=== PATIENT | male | born 1960 | race American Indian/Alaskan Native ===

== ENCOUNTER 2018-05-04 11:42 | Inpatient (IN) | payer BC ==
[2017-06-16 11:39] VITALS: BMI 33.9
[2018-05-04 14:56] LABS: INR 1.1; PROTHROMBIN TIME 12.4 SECONDS (9.7-12.2)
[2018-05-04 14:59] LABS: ALB/GLOB RATIO 1.2 (1.0-2.1); ALBUMIN 4.2 g/dL (3.5-5.0); BASO % 0.5 % (0.0-2.0); EOS # 0.1 K/uL (0.0-0.7); EOS % 1.5 % (0.0-4.0); HEMOGLOBIN 14.5 g/dL (12.0-18.0); LYMPH % 10.9 % (20.0-40.0); MEAN CELL VOLUME 88.7 fL (80.0-94.0); MEAN CORPUSCULAR HEMOGLOBIN 30.3 pg (27.0-31.0); MEAN CORPUSCULAR HGB CONC 34.1 g/dL (33.0-37.0); MEAN PLATELET VOLUME 9.8 fL (7.2-11.7); MONO # 0.9 K/uL (0.0-0.8); MONO % 9.9 % (0.0-10.0); NEUT # 7.3 K/uL (1.8-7.0); NEUT % 77.2 % (50.0-75.0); RBC 4.8 Mil/uL (4.40-5.90); RED CELL DISTRIBUTION WIDTH 15.2 % (11.5-14.5); WHITE BLOOD COUNT 9.4 K/uL (4.8-10.8)
[2018-05-04] MEDS ORDERED: Potassium Chloride 20 mEq ER Tab PO STA (15:11)
[2018-05-04] MEDS ORDERED: Sodium Chloride 0.9% 1,000 ML IV STA (15:42)
[2018-05-04 15:49] LABS: HEPATITIS B SURFACE AG Negative (NEGATIVE)
[2018-05-04 15:55] LABS: HEPATITIS A IGM NEGATIVE (NEGATIVE); HEPATITIS B CORE AB NEGATIVE (NEGATIVE)
[2018-05-04 16:06] LABS: HEPATITIS C ANTIBODY NEGATIVE (NEGATIVE)
--- NOTE | 2018-05-04 16:33 | US ---
HISTORY: Abdominal pain, abnormal LFTs and Bili, hypotension COMPARISON: None available. TECHNIQUE: Sonographic evaluation of the abdomen. FINDINGS: LIVER: Measures 21.9 cm in sagittal dimension. Echogenic liver may be seen in setting of hepatic parenchymal disease or fatty infiltration. Suspected focal fatty sparing. The main portal vein appears patent with normal directional flow. No intrahepatic bile duct dilatation. GALLBLADDER: Limited evaluation due to contracted state. No gallstones or gallbladder wall thickening appreciated. Negative sonographic Gomez's sign as assessed by the ent nurse. COMMON BILE DUCT: Measures 5 mm. PANCREAS: Not well visualized. RIGHT KIDNEY: Measures 11.2 x 4.5 x 6.0 cm. No obstructing calculus or hydronephrosis identified. LEFT KIDNEY: Measures 10.5 x 5.3 x 4.7 cm. No obstructing calculus or hydronephrosis identified. SPLEEN: Measures approximately 11.2 cm. AORTA: Limited views appear unremarkable. IVC: Limited views appear unremarkable. OTHER FINDINGS: None. IMPRESSION: Hepatomegaly. Echogenic liver may be seen in setting of hepatic parenchymal disease or fatty infiltration. Suspected focal fatty sparing. Suggest further evaluation with cross-sectional imaging if indicated. Contracted gallbladder state precludes adequate evaluation.
[2018-05-04] MEDS ORDERED: Sodium Chloride 0.9% 1,000 ML ONE (16:40)
[2018-05-04] MEDS ORDERED: Potassium Chloride 20 mEq ER Tab PO ONE (16:40)
[2018-05-04 17:50] LABS: BILIRUBIN,DIRECT 6.5 mg/dL (0.0-0.4)
--- NOTE | 2018-05-04 18:02 | C.PDOC ---
History Of Present Illness see downtime paper chart Time Seen by Provider: 05/04/18 15:30 Chief Complaint (Nursing): Abdominal Pain Past Medical History Vital Signs: Last Vital Signs Temp Pulse 62 05/04/18 17:41 Resp 16 05/04/18 17:41 BP 100/61 05/04/18 17:41 Pulse Ox 98 05/04/18 17:41 - Medical History PMH: HTN Denies: Chronic Kidney Disease Family History: States: No Known Family Hx ED Course And Treatment - Laboratory Results Result Diagrams: 05/06/18 06:40 05/06/18 06:40 O2 Sat by Pulse Oximetry: 98 Disposition - Disposition Disposition: HOSPITALIZED Disposition Time: 18:03 Condition: FAIR - Clinical Impression Clinical Impression: Abdominal bloating, Acute kidney injury, Obstructive jaundice
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
[2018-05-04 19:36] LABS: SQUAMOUS EPITHIAL 2 /hpf (0-5); URINE BACTERIA RARE (<OCC); URINE BILIRUBIN 2+ (NEGATIVE); URINE BLOOD 1+ (NEGATIVE); URINE CLARITY Hazy (Clear); URINE COLOR Amber (YELLOW); URINE GLUCOSE (UA) NORMAL (Normal); URINE LEUKOCYTE ESTERASE NEG Leu/uL (Negative); URINE PROTEIN 2+ mg/dL (NEGATIVE)
[2018-05-04] MEDS ORDERED: Glucagon Recombinant 1 mg Inj IM PRN (19:55)
[2018-05-04] MEDS ORDERED: Dextrose 50% SYRINGE Inj (50 ml) IV PRN (19:55)
[2018-05-04] MEDS ORDERED: Sodium Chloride 0.9% 1,000 ML IV SCH (20:00)
[2018-05-04 20:01] LABS: BARBITURATES, UR NEGATIVE (NEGATIVE); BENZODIAZEPINES, UR NEGATIVE (NEGATIVE); PHENCYCLIDINE, UR NEGATIVE (NEGATIVE)
[2018-05-04 20:06] LABS: OPIATES, UR POSITIVE (NEGATIVE)
[2018-05-04] MEDS ORDERED: Iohexol 240 (50 ml) ONE (20:11)
[2018-05-04 20:16] LABS: CREATININE, RANDOM URINE 326.3 mg/dL
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
[2018-05-05 07:20] LABS: BASO # 0.1 K/uL (0.0-0.2); BASO % 0.8 % (0.0-2.0); EOS # 0.3 K/uL (0.0-0.7); EOS % 3.8 % (0.0-4.0); HEMOGLOBIN 13.5 g/dL (12.0-18.0); LYMPH # 1.3 K/uL (1.0-4.3); LYMPH % 15.5 % (20.0-40.0); MEAN CELL VOLUME 88.4 fL (80.0-94.0); MEAN CORPUSCULAR HEMOGLOBIN 30.6 pg (27.0-31.0); MEAN CORPUSCULAR HGB CONC 34.6 g/dL (33.0-37.0); MEAN PLATELET VOLUME 9.4 fL (7.2-11.7); MONO # 0.9 K/uL (0.0-0.8); MONO % 10.7 % (0.0-10.0); NEUT # 5.6 K/uL (1.8-7.0); NEUT % 69.2 % (50.0-75.0); NRBC % 0.2 % (0.0-2.0); RBC 4.43 Mil/uL (4.40-5.90); RED CELL DISTRIBUTION WIDTH 14.8 % (11.5-14.5); WHITE BLOOD COUNT 8.1 K/uL (4.8-10.8)
--- NOTE | 2018-05-05 07:30 | CP.PCM.PN ---
<Elio Ugalde - Last Filed: 05/05/18 16:30> Subjective - Date & Time of Evaluation Date of Evaluation: 05/05/18 Time of Evaluation: 07:29 - Subjective Subjective: PGY-1 Medicine Progress Note for Dr. Mckeon Patient seen and examined. No acute overnight events reported. Patient endorses improved epigastric abdominal pain, pruritus. No new episodes of nausea/vomiting/diarrhea. Denies any fevers/chills, headaches, chest pain, palpitations, sob. Objective - Vital Signs/Intake and Output Vital Signs (last 24 hours): Temp Pulse Resp BP Pulse Ox 98.3 F 91 H 20 117/77 98 05/05/18 04:22 05/05/18 07:08 05/05/18 04:22 05/05/18 04:22 05/05/18 04:22 - Medications Medications: Current Medications Dextrose (Dextrose 50% Inj) 0 ml IV STAT PRN; Protocol PRN Reason: Hypoglycemia Protocol Dextrose (Glutose 15) 0 gm PO ONCE PRN; Protocol PRN Reason: Hypoglycemia Protocol Diphenhydramine HCl (Benadryl) 25 mg PO Q6 PRN PRN Reason: Itching / Pruritus Glucagon (Glucagen Diagnostic Kit) 0 mg IM STAT PRN; Protocol PRN Reason: Hypoglycemia Protocol Sodium Chloride (Sodium Chloride 0.9%) 1,000 mls @ 150 mls/hr IV .Q6H40M CHARLY Dextrose (Dextrose 5% In Water 1000 Ml) 1,000 mls @ 0 mls/hr IV .Q0M PRN; Protocol PRN Reason: Hypoglycemia Protocol Insulin Human Regular (Novolin R) 0 unit SC ACHS CHARLY; Protocol Pantoprazole Sodium (Protonix Inj) 40 mg IVP DAILY CHARLY - Labs Labs: 05/05/18 06:58 05/04/18 12:45 PT 12.4 SECONDS (9.7-12.2) H 05/04/18 12:45 INR 1.1 05/04/18 12:45 APTT 37 SECONDS (21-34) H 05/04/18 12:45 - Constitutional Appears: Non-toxic, No Acute Distress - Head Exam Head Exam: ATRAUMATIC, NORMAL INSPECTION, NORMOCEPHALIC - Eye Exam Eye Exam: EOMI, Normal appearance Pupil Exam: NORMAL ACCOMODATION - ENT Exam ENT Exam: Mucous Membranes Moist, Normal Exam - Neck Exam Neck Exam: Full ROM, Normal Inspection - Respiratory Exam Respiratory Exam: Clear to Ausculation Bilateral, NORMAL BREATHING PATTERN. absent: Accessory Muscle Use, Rales, Rhonchi, Wheezes, Respiratory Distress, Stridor - Cardiovascular Exam Cardiovascular Exam: REGULAR RHYTHM, +S1, +S2 - GI/Abdominal Exam GI & Abdominal Exam: Soft, Tenderness (mild), Normal Bowel Sounds. absent: Distended, Firm, Guarding, Rigid, Organomegaly, Rebound - Extremities Exam Extremities Exam: Full ROM, Normal Capillary Refill, Normal Inspection - Back Exam Back Exam: NORMAL INSPECTION - Neurological Exam Neurological Exam: Alert, Awake, Oriented x3 - Psychiatric Exam Psychiatric exam: Normal Affect, Normal Mood - Skin Skin Exam: Dry, Intact, Normal Color, Warm Assessment and Plan - Assessment and Plan (Free Text) Assessment: 58 year old obese male with PMHx of HTN, DM, chronic back pain presenting to ED from PMD's office for hypotension, jaundice, pruritis, epigastric abdominal pain. Plan: New onset jaundice, r/o obstructive jaundice vs medication-induced -AST/ALT 100/306-->86/239 -ALP 230-->212 -Direct bilirubin 6.5 -GGT 1027 -amylase/lipase wnl -serum ammonia wnl -hepatitis panel negative -Abdominal u/s: CBD 5mm, hepatomegaly. Echogenic liver may be seen in setting of hepatic parenchymal disease or fatty infiltration. Suspected focal fatty sparing. Contracted gallbladder state precludes adequate evaluation - GI recs (Dr. Yen) appreciated: -EGD done this AM with no significant findings -Continue to monitor LFTs, suspect drug induced liver injury given clinical scenario -Obtain autoimmune panel and iron studies -Will continue to monitor patient clinical course -Case discussed with Surgery (Dr. Ceron) -EGD done this AM with no significant findings -Monitor LFTs -no plan for surgical intervention at this time Acute Renal Failure -BUN/Cr: 28/2.8 on admission -UCx prelim: GNR -Nephrology (Dr. [place]) recs appreciated -continue IVF w/ NS at 150 cc/hr -replenish potassium prn (mild hypokalemia) -awaiting results of CT abd/pelvis -avoid nephrotoxic agents (NSAIDS, etc) -hold ARB Hypokalemia -replenished, continue to monitor HTN -resumed home meds -ASA 81 mg PO daily -Norvasc 5 mg PO daily -Coreg 12.5 mg PO BID DM -A1C: 6.9 -home metformin held -ISS -accuchecks ACHS -hypoglycemic protocol PPx, Diet, Disposition -DVT ppx: scds, heparin 5000 units sc q8 -GI ppx: protonix 40 daily -Diet: diabetic consistent Case discussed with Dr. Mike Ugalde DO, PGY-1 <Tha Mckeon - Last Filed: 05/07/18 20:03> Objective - Vital Signs/Intake and Output Vital Signs (last 24 hours): Temp Pulse Resp BP Pulse Ox 97.8 F 77 20 142/93 H 98 05/07/18 07:00 05/07/18 16:00 05/07/18 07:00 05/07/18 09:01 05/07/18 07:00 - Labs Labs: 05/07/18 07:20 05/07/18 07:11 PT 12.2 SECONDS (9.7-12.2) 05/06/18 11:53 INR 1.1 05/06/18 11:53 APTT 37 SECONDS (21-34) H 05/04/18 12:45 Attending/Attestation - Attestation I have personally seen and examined this patient.: Yes I have fully participated in the care of the patient.: Yes I have reviewed all pertinent clinical information, including history, physical exam and plan: Yes Notes (Text): seen and examined no complain,pruritus better s/p EGD continue to monitor his LFT hold ACEI and metformin continue norvasc and coreg discussed with the resident,spoke to Dr Yen
[2018-05-05 07:39] LABS: ALB/GLOB RATIO 1.1 (1.0-2.1); ALBUMIN 3.7 g/dL (3.5-5.0); CALCIUM 8.6 mg/dl (8.6-10.4)
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
[2018-05-05] MEDS ORDERED: Potassium Chloride 20 mEq ER Tab PO ONE ×2 (07:52→21:51)
[2018-05-05] MEDS: (Novolin R) Insulin Human Regular 100 units/ml vial SC SCH ×3 (08:18→22:58)
[2018-05-05] MEDS: Sodium Chloride 0.9% 1,000 ML IV SCH ×3 (08:31→22:19)
--- NOTE | 2018-05-05 08:45 | CP.PCM.PN ---
Subjective - Date & Time of Evaluation Date of Evaluation: 05/05/18 Time of Evaluation: 11:06 - Subjective Subjective: Surgery: Dr. Ceron Pt seen and examined. No acute overnight events. Pt states he is feeling better compared to yesterday and epigastric pain is less severe. He denies any episodes of nausea/vomiting. Denies fevers/chills. Objective - Vital Signs/Intake and Output Vital Signs (last 24 hours): Temp Pulse Resp BP Pulse Ox 98.3 F 91 H 20 154/91 H 95 05/05/18 07:00 05/05/18 07:08 05/05/18 07:00 05/05/18 07:00 05/05/18 07:00 - Medications Medications: Current Medications Dextrose (Dextrose 50% Inj) 0 ml IV STAT PRN; Protocol PRN Reason: Hypoglycemia Protocol Dextrose (Glutose 15) 0 gm PO ONCE PRN; Protocol PRN Reason: Hypoglycemia Protocol Diphenhydramine HCl (Benadryl) 25 mg PO Q6 PRN PRN Reason: Itching / Pruritus Glucagon (Glucagen Diagnostic Kit) 0 mg IM STAT PRN; Protocol PRN Reason: Hypoglycemia Protocol Dextrose (Dextrose 5% In Water 1000 Ml) 1,000 mls @ 0 mls/hr IV .Q0M PRN; Protocol PRN Reason: Hypoglycemia Protocol Potassium Chloride (Potassium Chloride 10 Meq/100 Ml) 10 meq in 100 mls @ 100 mls/hr IVPB ONCE ONE Stop: 05/05/18 08:59 Last Admin: 05/05/18 08:11 Dose: 100 mls/hr Sodium Chloride (Sodium Chloride 0.9%) 1,000 mls @ 100 mls/hr IV .Q10H [facility] Last Admin: 05/05/18 08:31 Dose: Not Given Insulin Human Regular (Novolin R) 0 unit SC ACHS [facility]; Protocol Last Admin: 05/05/18 08:18 Dose: Not Given Pantoprazole Sodium (Protonix Inj) 40 mg IVP DAILY [facility] - Labs Labs: 05/05/18 06:58 05/05/18 06:58 PT 12.4 SECONDS (9.7-12.2) H 05/04/18 12:45 INR 1.1 05/04/18 12:45 APTT 37 SECONDS (21-34) H 05/04/18 12:45 - Constitutional Appears: Well, No Acute Distress - Head Exam Head Exam: ATRAUMATIC, NORMOCEPHALIC - Eye Exam Eye Exam: Scleral icterus - ENT Exam ENT Exam: Mucous Membranes Moist - Respiratory Exam Respiratory Exam: NORMAL BREATHING PATTERN - Cardiovascular Exam Cardiovascular Exam: RRR - GI/Abdominal Exam GI & Abdominal Exam: Soft. absent: Guarding, Tenderness, Rebound - Neurological Exam Neurological Exam: Alert, Awake, Oriented x3 - Skin Skin Exam: Dry, Warm Assessment and Plan - Assessment and Plan (Free Text) Assessment: 58M with obstructive jaundice Plan: - f/u GI plan - EGD done this AM with no significant findings - Monitor LFTs - no plan for surgical intervention at this time - d/w Dr. Jie Bustillo
--- NOTE | 2018-05-05 09:18 | RAD ---
Date of service: 05/05/2018 HISTORY: r/o lung pathology COMPARISON: None available. FINDINGS: LUNGS: No acute infiltrates bilaterally. Faint nodular density at the mid left lung zone laterally which confirmed on a prior CT of the abdomen pelvis in the lung base sections image 1 series 5 performed 05/04/2018. This is not calcified nodule and therefore granuloma is not improved. Follow-up low-dose chest CT without contrast is advised to demonstrate stability of this finding in 6-12 months depending on patient's risk factors for developing lung cancer. PLEURA: No significant pleural effusion identified, no pneumothorax apparent. CARDIOVASCULAR: No aortic atherosclerotic calcification present. Normal cardiac size. Borderline pulmonary venous congestion. OSSEOUS STRUCTURES: No significant abnormalities. VISUALIZED UPPER ABDOMEN: Normal. OTHER FINDINGS: None. IMPRESSION: No acute cardiopulmonary disease appreciable. A sub cm nodule seen the mid left lung zone laterally, apparently in left upper lobe as demonstrated prior chest base sections from abdomen and pelvis CT 05/04/2018 for follow-up chest CT advised under low-dose technique without contrast in 6-12 months depending on patient risk factors for developing lung cancer.
[2018-05-05] MEDS ORDERED: Potassium Chloride 20 mEq ER Tab PO SCH (10:00)
[2018-05-05] MEDS ORDERED: Propofol 10 mg/ml Inj (20 ML) ONE ×2 (10:34→10:41)
--- NOTE | 2018-05-05 13:08 | CT ---
PROCEDURE: CT Abdomen and Pelvis without IV contrast. HISTORY: High LFT and acute renal failure COMPARISON: Abdominal ultrasound performed 05/04/18 TECHNIQUE: Contiguous axial images of the abdomen and pelvis. Oral contrast was administered. No IV contrast given. Coronal and Sagittal reformats generated and reviewed. Radiation dose: Total exam DLP = 1204.69 mGy-cm. This CT exam was performed using one or more of the following dose reduction techniques: Automated exposure control, adjustment of the mA and/or kV according to patient size, and/or use of iterative reconstruction technique. FINDINGS: There is limited evaluation of the solid organs without the administration of IV contrast. LOWER THORAX: 4 mm nodule, lingula (series 5, image 1). 7 mm nodule with calcified calcification in the right middle lobe (image 3). 2 mm subpleural left lower lobe nodule. Calcified granuloma at the right lung base measures approximately 2 mm. No visible consolidation, pleural effusion, or pneumothorax. Partially imaged borderline cardiomegaly. LIVER: Unremarkable unenhanced appearance. GALLBLADDER AND BILE DUCTS: Unremarkable unenhanced appearance. PANCREAS: Question possibility of mild pancreatic edema at the level of the uncinate/head. SPLEEN: Unremarkable unenhanced appearance. ADRENALS: Unremarkable unenhanced appearance. KIDNEYS AND URETERS: No hydronephrosis or obstructing renal calculus. BLADDER: The urinary bladder appears unremarkable. REPRODUCTIVE: Unremarkable. APPENDIX: The appendix appears within normal limits of caliber. No secondary signs of acute appendicitis. BOWEL: The stomach is nondistended. Possible mild gastric wall thickening may be seen in the setting of gastritis. The bowel loops appear within normal limits of caliber without evidence of intestinal obstruction. Duodenal diverticulum. Marked small bowel wall thickening of the duodenum and jejunum may be seen in the setting of enteritis. Diverticulosis without CT evidence of acute diverticulitis. PERITONEUM: No significant free fluid. No definite free air. LYMPH NODES: Prominent sub cm mesenteric lymph nodes, nonspecific. Mild associated mesenteric edema/inflammatory stranding. VASCULATURE: No aortic aneurysm. BONES: No acute osseous abnormality is detected. OTHER FINDINGS: None. IMPRESSION: Evidence of calcified granulomas at the right lung base as well as noncalcified pulmonary nodules measuring up to 4 mm in the lingula. Suggest follow-up CT at 12 months. Duodenal diverticulum. Marked wall thickening of the duodenum and proximal jejunum; correlate for enteritis. Gastric wall appears mildly thickened and gastritis is not excluded. Sub cm mesenteric lymph nodes and associated mesenteric inflammatory stranding/edema; mesenteric adenitis/panniculitis not excluded. Suspect mild edema involving the pancreatic uncinate/head possibly the result of adjacent inflammatory changes. Pancreatitis cannot be excluded. Recommend correlation with amylase and lipase. Additional incidental findings as above. Preliminary impression was provided by [employer]. Study marked for PA review.
[2018-05-05 14:34] LABS: IRON 75 ug/dL (49-181)
[2018-05-05 14:43] LABS: % IRON SATURATION 18 (20-55); TOTAL IRON BINDING CAPACITY 415 ug/dL (250-450)
[2018-05-05] MEDS ORDERED: oxyCODONE 5 mg Immediate Release Tab PO ONE (18:02)
[2018-05-05] MEDS ORDERED: Simethicone 80 mg Chewtab PO PRN (19:37)
[2018-05-05] MEDS: Potassium Chloride 20 mEq ER Tab PO SCH ×2 (19:54→21:51)
--- NOTE | 2018-05-05 22:48 | CP.PCM.PN ---
Subjective - Date & Time of Evaluation Date of Evaluation: 05/05/18 Time of Evaluation: 20:00 - Subjective Subjective: Patient reporting severe abd pain a little while ago, attributes it to gas, resolved; still with some epigastric soreness; tolerating diet well; urinating frequently; Objective - Vital Signs/Intake and Output Vital Signs (last 24 hours): Temp Pulse Resp BP Pulse Ox 98.2 F 77 20 157/89 H 95 05/05/18 15:00 05/05/18 15:00 05/05/18 15:00 05/05/18 17:36 05/05/18 15:00 Intake and Output: 05/05/18 05/06/18 18:59 06:59 Intake Total 800 800 Balance 800 800 - Medications Medications: Current Medications Amlodipine Besylate (Norvasc) 5 mg PO DAILY [facility] Aspirin (Aspirin Chewable) 81 mg PO DAILY [facility] Carvedilol (Coreg) 12.5 mg PO BID [facility] Last Admin: 05/05/18 17:36 Dose: 12.5 mg Dextrose (Dextrose 50% Inj) 0 ml IV STAT PRN; Protocol PRN Reason: Hypoglycemia Protocol Dextrose (Glutose 15) 0 gm PO ONCE PRN; Protocol PRN Reason: Hypoglycemia Protocol Diphenhydramine HCl (Benadryl) 25 mg PO Q6 PRN PRN Reason: Itching / Pruritus Glucagon (Glucagen Diagnostic Kit) 0 mg IM STAT PRN; Protocol PRN Reason: Hypoglycemia Protocol Dextrose (Dextrose 5% In Water 1000 Ml) 1,000 mls @ 0 mls/hr IV .Q0M PRN; Protocol PRN Reason: Hypoglycemia Protocol Potassium Chloride 40 meq/ (Sodium Chloride) 1,020 mls @ 100 mls/hr IV .[id number] [facility] Stop: 05/06/18 08:58 Insulin Human Regular (Novolin R) 0 unit SC ACHS [facility]; Protocol Last Admin: 05/05/18 17:36 Dose: 2 unit Pantoprazole Sodium (Protonix Inj) 40 mg IVP DAILY [facility] Last Admin: 05/05/18 10:16 Dose: Not Given Pneumococcal Polyvalent Vaccine (Pneumovax 23 Vaccine) 0.5 ml IM .ONCE ONE Stop: 05/07/18 10:01 Simethicone (Mylicon Chew Tab) 80 mg PO Q6H PRN PRN Reason: GI distress Last Admin: 05/05/18 19:53 Dose: 80 mg - Labs Labs: 05/05/18 06:58 05/05/18 17:29 PT 12.4 SECONDS (9.7-12.2) H 05/04/18 12:45 INR 1.1 05/04/18 12:45 APTT 37 SECONDS (21-34) H 05/04/18 12:45 - Constitutional Appears: Non-toxic, No Acute Distress - Eye Exam Eye Exam: Normal appearance - ENT Exam ENT Exam: Mucous Membranes Moist - Respiratory Exam Respiratory Exam: Clear to Ausculation Bilateral. absent: Respiratory Distress - Cardiovascular Exam Cardiovascular Exam: RRR, +S1, +S2 - GI/Abdominal Exam GI & Abdominal Exam: Soft, Tenderness - Extremities Exam Additional comments: no leg edema; - Neurological Exam Neurological Exam: Alert, Awake - Psychiatric Exam Psychiatric exam: Normal Mood. absent: Agitated - Skin Skin Exam: Warm. absent: Cyanosis Assessment and Plan (1) Acute kidney injury Assessment & Plan: Pre-renal etiology, resolving with IVF, continue same; holding ARB for today, should be able to restart by tomorrow; continue to replenish K prn (adding 40 meq/L to IVF); avoid nephrotoxic agents; Status: Acute (2) HTN (hypertension) Assessment & Plan: BP elevated, agree with restarting amlodipine and coreg; holding ARB as above; Status: Chronic (3) Back pain Status: Chronic (4) Obstructive jaundice Status: Acute
--- NOTE | 2018-05-05 23:14 | CARD ---
APPROVED REPORT Date of service: 05/05/2018 EXAM: Two-dimensional and M-mode echocardiogram with Doppler and color Doppler. Other Information Quality : LimitedRhythm : NSR INDICATION PULMONARY EDEMA 2D DIMENSIONS IVSd0.8 (0.7-1.1cm)LVDd5.3 (3.9-5.9cm) PWd0.8 (0.7-1.1cm)LA [id number] (18-58mL) LVDs3.7 (2.5-4.0cm)FS (%) 29.7 % LVEF (%)56.3 (>50%) M-Mode DIMENSIONS Left Atrium (MM)3.71 (2.5-4.0cm)IVSd1.10 (0.7-1.1cm) Aortic Root3.97 (2.2-3.7cm)LVDd5.35 (4.0-5.6cm) Aortic Cusp Exc.2.02 (1.5-2.0cm)PWd1.20 (0.7-1.1cm) FS (%) 29 %LVDs3.79 (2.0-3.8cm) LVEF (%)56 (>50%) Mitral Valve MV E Ksmqnmfv91.2cm/sMV A Ghabplte01.9cm/sE/A ratio1.3 TDI Lateral E' Peak V7.13cm/sMedial E' Peak V8.74cm/sE/Lateral E'12.8 E/Medial E'10.4 LEFT VENTRICLE The left ventricle is normal size. There is borderline concentric left ventricular hypertrophy. Left ventricle systolic function is normal. The Ejection Fraction is 55-60%. There is normal LV segmental wall motion. Transmitral Doppler flow pattern is Grade I-abnormal relaxation pattern. There is no ventricular septal defect visualized. RIGHT VENTRICLE The right ventricle is normal size. The right ventricular systolic function is normal. ATRIA The left atrium is mildly dilated. The right atrium size is normal. AORTIC VALVE The aortic valve is mildly sclerotic. The aortic valve is tri-cuspid. There is trace aortic regurgitation. There is no aortic valvular stenosis. MITRAL VALVE The mitral valve is normal in structure. There is no evidence of mitral valve prolapse. There is no mitral valve regurgitation noted. TRICUSPID VALVE The tricuspid valve is normal in structure. There is no tricuspid valve regurgitation noted. PULMONIC VALVE The pulmonary valve is normal in structure. There is no pulmonic valvular regurgitation. GREAT VESSELS The aortic root is mildly enlarged. 3.8 cm The ascending aorta is normal in size. The IVC was not visualized. PERICARDIAL EFFUSION There is no pericardial effusion. <Conclusion> There is borderline concentric left ventricular hypertrophy. Left ventricle systolic function is normal. The Ejection Fraction is 55-60%. Transmitral Doppler flow pattern is Grade I-abnormal relaxation pattern. The aortic root is mildly enlarged. 3.8 cm
[2018-05-06 06:47] LABS: BASO % 0.6 % (0.0-2.0); EOS # 0.2 K/uL (0.0-0.7); EOS % 3.2 % (0.0-4.0); HEMOGLOBIN 13.7 g/dL (12.0-18.0); LYMPH # 1.1 K/uL (1.0-4.3); LYMPH % 15.1 % (20.0-40.0); MEAN CELL VOLUME 87.7 fL (80.0-94.0); MEAN CORPUSCULAR HEMOGLOBIN 31.1 pg (27.0-31.0); MEAN CORPUSCULAR HGB CONC 35.4 g/dL (33.0-37.0); MEAN PLATELET VOLUME 8.9 fL (7.2-11.7); MONO # 0.8 K/uL (0.0-0.8); MONO % 11.4 % (0.0-10.0); NEUT # 5.2 K/uL (1.8-7.0); NEUT % 69.7 % (50.0-75.0); RBC 4.43 Mil/uL (4.40-5.90); RED CELL DISTRIBUTION WIDTH 14.6 % (11.5-14.5); WHITE BLOOD COUNT 7.4 K/uL (4.8-10.8)
[2018-05-06 07:01] LABS: ALB/GLOB RATIO 1.1 (1.0-2.1); ALT/SGPT 239 U/L (21-72); AST/SGOT 137 U/L (17-59); BLOOD UREA NITROGEN 12 mg/dL (9-20); GFR NON-AFRICAN AMERICAN > 60
--- NOTE | 2018-05-06 07:33 | CP.PCM.PN ---
<Elio Ugalde - Last Filed: 05/06/18 13:14> Subjective - Date & Time of Evaluation Date of Evaluation: 05/06/18 Time of Evaluation: 07:33 - Subjective Subjective: PGY-1 Medicine Progress Note for Dr. Mckeon Patient seen and examined at bedside this AM. No acute overnight events. Patient states epigastric abdominal pain is mildly improved, endorses 3 BM overnight. Patient had EGD performed yesterday, with no acute findings. Scheduled for MRCP later this afternoon. No other acute somatic complaints at this time. Objective - Vital Signs/Intake and Output Vital Signs (last 24 hours): Temp Pulse Resp BP Pulse Ox 98.2 F 85 20 145/89 95 05/05/18 23:50 05/05/18 23:50 05/05/18 23:50 05/05/18 23:50 05/05/18 23:50 Intake and Output: 05/06/18 05/06/18 06:59 18:59 Intake Total 1650 Balance 1650 - Medications Medications: Current Medications Amlodipine Besylate (Norvasc) 5 mg PO DAILY [facility] Aspirin (Aspirin Chewable) 81 mg PO DAILY [facility] Carvedilol (Coreg) 12.5 mg PO BID [facility] Last Admin: 05/05/18 17:36 Dose: 12.5 mg Dextrose (Dextrose 50% Inj) 0 ml IV STAT PRN; Protocol PRN Reason: Hypoglycemia Protocol Dextrose (Glutose 15) 0 gm PO ONCE PRN; Protocol PRN Reason: Hypoglycemia Protocol Diphenhydramine HCl (Benadryl) 25 mg PO Q6 PRN PRN Reason: Itching / Pruritus Glucagon (Glucagen Diagnostic Kit) 0 mg IM STAT PRN; Protocol PRN Reason: Hypoglycemia Protocol Dextrose (Dextrose 5% In Water 1000 Ml) 1,000 mls @ 0 mls/hr IV .Q0M PRN; Protocol PRN Reason: Hypoglycemia Protocol Potassium Chloride 40 meq/ (Sodium Chloride) 1,020 mls @ 100 mls/hr IV .[id number] [facility] Stop: 05/06/18 08:58 Insulin Human Regular (Novolin R) 0 unit SC ACHS [facility]; Protocol Last Admin: 05/05/18 22:58 Dose: Not Given Pantoprazole Sodium (Protonix Inj) 40 mg IVP DAILY [facility] Last Admin: 05/05/18 10:16 Dose: Not Given Pneumococcal Polyvalent Vaccine (Pneumovax 23 Vaccine) 0.5 ml IM .ONCE ONE Stop: 05/07/18 10:01 Simethicone (Mylicon Chew Tab) 80 mg PO Q6H PRN PRN Reason: GI distress Last Admin: 05/05/18 19:53 Dose: 80 mg - Labs Labs: 05/06/18 06:40 05/06/18 06:40 PT 12.4 SECONDS (9.7-12.2) H 05/04/18 12:45 INR 1.1 05/04/18 12:45 APTT 37 SECONDS (21-34) H 05/04/18 12:45 - Constitutional Appears: Non-toxic, No Acute Distress - Head Exam Head Exam: ATRAUMATIC, NORMAL INSPECTION, NORMOCEPHALIC - Eye Exam Eye Exam: EOMI, Scleral icterus Pupil Exam: NORMAL ACCOMODATION - ENT Exam ENT Exam: Mucous Membranes Moist, Normal Exam - Neck Exam Neck Exam: Full ROM, Normal Inspection - Respiratory Exam Respiratory Exam: Clear to Ausculation Bilateral, NORMAL BREATHING PATTERN. absent: Accessory Muscle Use, Rales, Rhonchi, Wheezes, Respiratory Distress, Stridor - Cardiovascular Exam Cardiovascular Exam: REGULAR RHYTHM, +S1, +S2 - GI/Abdominal Exam GI & Abdominal Exam: Soft, Tenderness, Normal Bowel Sounds - Extremities Exam Extremities Exam: Full ROM, Normal Capillary Refill, Normal Inspection. absent: Calf Tenderness, Pedal Edema - Back Exam Back Exam: NORMAL INSPECTION - Neurological Exam Neurological Exam: Alert, Awake, Oriented x3 - Psychiatric Exam Psychiatric exam: Normal Affect, Normal Mood - Skin Skin Exam: Dry, Intact, Normal Color, Warm Assessment and Plan - Assessment and Plan (Free Text) Assessment: 58 year old obese male with PMHx of HTN, DM, chronic back pain presenting to ED from PMD's office for hypotension, jaundice, pruritis, epigastric abdominal pain. Plan: New onset jaundice, r/o obstructive jaundice vs medication-induced -AST/ALT 100/306-->86/239 -ALP 230-->212 -Direct bilirubin 6.5 -GGT 1027 -amylase/lipase wnl -serum ammonia wnl -hepatitis panel negative -Abdominal u/s: CBD 5mm, hepatomegaly. Echogenic liver may be seen in setting of hepatic parenchymal disease or fatty infiltration. Suspected focal fatty sparing. Contracted gallbladder state precludes adequate evaluation - GI recs (Dr. Yen) appreciated: -s/p EGD 05/05/18. No significan abnormalities seen throughout, reached 2nd part of duodenum -f/u bx report -Elevated liver tests are cholestatic pattern, more elevated today. Concern for obstruction although, not previously seen on U/S. Discussed with primary team, agree with MRI/MRCP to r/o anatomical changes. -Continue to monitor liver tests -Hepatitis panel negative. Will check auto-immune work-up. TSH, Iron normal. -Patient is having some discomfort with diet, will decrease to full liquid, low fat. -Case discussed with Surgery (Dr. eCron) -EGD done this AM with no significant findings -Monitor LFTs -no plan for surgical intervention at this time Acute Renal Failure -BUN/Cr: 28/2.8 on admission -UCx prelim: Enterobacter cloacae -Nephrology (Dr. [place]) recs appreciated -continue IVF w/ NS at 150 cc/hr -replenish potassium prn (mild hypokalemia) -awaiting results of CT abd/pelvis -avoid nephrotoxic agents (NSAIDS, etc) -hold ARB Hypokalemia -replenished, continue to monitor HTN -resumed home meds -ASA 81 mg PO daily -Norvasc 5 mg PO daily -Coreg 12.5 mg PO BID DM -A1C: 6.9 -home metformin held -ISS -accuchecks ACHS -hypoglycemic protocol PPx, Diet, Disposition -DVT ppx: scds, heparin 5000 units sc q8 -GI ppx: protonix 40 daily -Diet: diabetic consistent Case discussed with Dr. Mike Ugalde DO, PGY-1 <Tha Mckeon - Last Filed: 05/07/18 20:01> Objective - Vital Signs/Intake and Output Vital Signs (last 24 hours): Temp Pulse Resp BP Pulse Ox 97.8 F 77 20 142/93 H 98 05/07/18 07:00 05/07/18 16:00 05/07/18 07:00 05/07/18 09:01 05/07/18 07:00 - Labs Labs: 05/07/18 07:20 05/07/18 07:11 PT 12.2 SECONDS (9.7-12.2) 05/06/18 11:53 INR 1.1 05/06/18 11:53 APTT 37 SECONDS (21-34) H 05/04/18 12:45 Attending/Attestation - Attestation I have personally seen and examined this patient.: Yes I have fully participated in the care of the patient.: Yes I have reviewed all pertinent clinical information, including history, physical exam and plan: Yes Notes (Text): no complain. Elevated LFT normal MRCP monitor LFT. Possible discharge if it come down follow GI Assessment and the plan discussed with the resident. Jia gallegos with the documentation
[2018-05-06] MEDS: (Novolin R) Insulin Human Regular 100 units/ml vial SC SCH ×4 (07:35→22:15)
--- NOTE | 2018-05-06 10:46 | CP.PCM.PN ---
<Jono Dunn - Last Filed: 05/06/18 11:35> Subjective - Date & Time of Evaluation Date of Evaluation: 05/06/18 Time of Evaluation: 10:44 - Subjective Subjective: GI Fellow PGY4, progress note. Patient complains of continued epigastric discomfort; again he had pain 20mins after eating yesterday. EGD did not show anything substantial. 5pt ROS Objective - Vital Signs/Intake and Output Vital Signs (last 24 hours): Temp Pulse Resp BP Pulse Ox 98.0 F 74 20 152/89 H 98 05/06/18 07:20 05/06/18 07:20 05/06/18 07:20 05/06/18 07:20 05/06/18 07:20 Intake and Output: 05/06/18 05/06/18 06:59 18:59 Intake Total 1650 Balance 1650 - Medications Medications: Current Medications Amlodipine Besylate (Norvasc) 5 mg PO DAILY [facility] Aspirin (Aspirin Chewable) 81 mg PO DAILY [facility] Carvedilol (Coreg) 12.5 mg PO BID [facility] Last Admin: 05/05/18 17:36 Dose: 12.5 mg Dextrose (Dextrose 50% Inj) 0 ml IV STAT PRN; Protocol PRN Reason: Hypoglycemia Protocol Dextrose (Glutose 15) 0 gm PO ONCE PRN; Protocol PRN Reason: Hypoglycemia Protocol Diphenhydramine HCl (Benadryl) 25 mg PO Q6 PRN PRN Reason: Itching / Pruritus Glucagon (Glucagen Diagnostic Kit) 0 mg IM STAT PRN; Protocol PRN Reason: Hypoglycemia Protocol Dextrose (Dextrose 5% In Water 1000 Ml) 1,000 mls @ 0 mls/hr IV .Q0M PRN; Protocol PRN Reason: Hypoglycemia Protocol Insulin Human Regular (Novolin R) 0 unit SC ACHS [facility]; Protocol Last Admin: 05/05/18 22:58 Dose: Not Given Pantoprazole Sodium (Protonix Inj) 40 mg IVP DAILY [facility] Last Admin: 05/05/18 10:16 Dose: Not Given Pneumococcal Polyvalent Vaccine (Pneumovax 23 Vaccine) 0.5 ml IM .ONCE ONE Stop: 05/07/18 10:01 Simethicone (Mylicon Chew Tab) 80 mg PO Q6H PRN PRN Reason: GI distress Last Admin: 05/05/18 19:53 Dose: 80 mg - Labs Labs: 05/06/18 06:40 05/06/18 06:40 PT 12.4 SECONDS (9.7-12.2) H 05/04/18 12:45 INR 1.1 05/04/18 12:45 APTT 37 SECONDS (21-34) H 05/04/18 12:45 - Constitutional Appears: Well, Non-toxic - Head Exam Head Exam: ATRAUMATIC, NORMAL INSPECTION - Eye Exam Eye Exam: EOMI, Scleral icterus - ENT Exam ENT Exam: Mucous Membranes Moist, Normal Exam - Respiratory Exam Respiratory Exam: Clear to Ausculation Bilateral, NORMAL BREATHING PATTERN - Cardiovascular Exam Cardiovascular Exam: REGULAR RHYTHM, +S1, +S2 - GI/Abdominal Exam GI & Abdominal Exam: Soft, Tenderness, Normal Bowel Sounds - Neurological Exam Neurological Exam: Alert, Awake, Oriented x3 - Psychiatric Exam Psychiatric exam: Normal Affect, Normal Mood - Skin Skin Exam: Dry, Warm Assessment and Plan - Assessment and Plan (Free Text) Assessment: #Elevated liver tests #Abdominal pain #Chronic pain with Chronic NSAID use #JOSE #DM, HTN PLAN: -s/p EGD 05/05/18. No significan abnormalities seen throughout, reached 2nd part of duodenum. -Bx pathology PENDING -Elevated liver tests are cholestatic pattern, more elevated today. Concern for obstruction although, not previously seen on U/S. Discussed with primary team, agree with MRI/MRCP to r/o anatomical changes. -Continue to monitor liver tests -Hepatitis panel negative. Will check auto-immune work-up. TSH, Iron normal. -CT reviewed and there is evidence for acute inflammation around the duodenum/uncinate. Lipase is normal. -Continue PPI PO daily -Avoid all hepatotoxic medications (Abx, NSAIDs) -Avoid NSAIDs -Patient is having some discomfort with diet, will decrease to full liquid, low fat. Case discussed with Dr. Yen, see attestation <Khurram Yen - Last Filed: 05/06/18 13:17> Objective - Vital Signs/Intake and Output Vital Signs (last 24 hours): Temp Pulse Resp BP Pulse Ox 98.0 F 74 20 154/89 H 98 05/06/18 07:20 05/06/18 07:20 05/06/18 07:20 05/06/18 11:15 05/06/18 07:20 Intake and Output: 05/06/18 05/06/18 06:59 18:59 Intake Total 1650 Balance 1650 - Medications Medications: Current Medications Amlodipine Besylate (Norvasc) 5 mg PO DAILY [facility] Last Admin: 05/06/18 11:15 Dose: 5 mg Aspirin (Aspirin Chewable) 81 mg PO DAILY [facility] Last Admin: 05/06/18 11:15 Dose: 81 mg Carvedilol (Coreg) 12.5 mg PO BID [facility] Last Admin: 05/06/18 11:15 Dose: 12.5 mg Dextrose (Dextrose 50% Inj) 0 ml IV STAT PRN; Protocol PRN Reason: Hypoglycemia Protocol Dextrose (Glutose 15) 0 gm PO ONCE PRN; Protocol PRN Reason: Hypoglycemia Protocol Diphenhydramine HCl (Benadryl) 25 mg PO Q6 PRN PRN Reason: Itching / Pruritus Glucagon (Glucagen Diagnostic Kit) 0 mg IM STAT PRN; Protocol PRN Reason: Hypoglycemia Protocol Dextrose (Dextrose 5% In Water 1000 Ml) 1,000 mls @ 0 mls/hr IV .Q0M PRN; Protocol PRN Reason: Hypoglycemia Protocol Insulin Human Regular (Novolin R) 0 unit SC ACHS [facility]; Protocol Last Admin: 05/06/18 12:15 Dose: Not Given Pantoprazole Sodium (Protonix Ec Tab) 40 mg PO DAILY [facility] Pneumococcal Polyvalent Vaccine (Pneumovax 23 Vaccine) 0.5 ml IM .ONCE ONE Stop: 05/07/18 10:01 Simethicone (Mylicon Chew Tab) 80 mg PO Q6H PRN PRN Reason: GI distress Last Admin: 05/05/18 19:53 Dose: 80 mg - Labs Labs: 05/06/18 06:40 05/06/18 06:40 PT 12.2 SECONDS (9.7-12.2) 05/06/18 11:53 INR 1.1 05/06/18 11:53 APTT 37 SECONDS (21-34) H 05/04/18 12:45 Attending/Attestation - Attestation I have personally seen and examined this patient.: Yes I have fully participated in the care of the patient.: Yes I have reviewed all pertinent clinical information, including history, physical exam and plan: Yes Notes (Text): 05/06/18 13:15 I have seen and examined patient with GI fellow. Patient reports ongoing abdominal pain, particularly post prandial. He otherwise denies nausea, vomiting, fever/chills. Review of vitals from today shows elevated BP. DM / HTN Abdominal pain Jaundice - unclear etiology, possibly drug related Transaminitis - Would scale back diet to liquids and continue to observe - Rise in LFTs/bilirubin noted, continue to monitor - MRCP ordered by medical team, follow up results - Awaiting autoimmune panel testing - Will continue to monitor patient clinical course
[2018-05-06 12:16] LABS: INR 1.1; PROTHROMBIN TIME 12.2 SECONDS (9.7-12.2)
--- NOTE | 2018-05-06 13:59 | MRI ---
Date of service: 05/06/2018 PROCEDURE: Magnetic Resonance Cholangiopancreatography HISTORY: COMPARISON: None available. TECHNIQUE: Multiplanar, multisequence MR images of the abdomen were obtained, including heavily T2 weighted MRCP images of the biliary system. Rotating maximum intensity projection images of the biliary system were generated. FINDINGS: MRCP: The common bile duct is of a normal caliber. No evidence of choledocholithiasis. No intrahepatic biliary ductal dilatation. LIVER: Normal size contour. Mild diffuse fatty infiltration, manifested as signal loss on opposed phase images. 1.2 cm cyst in left lobe of liver adjacent to gallbladder fundus. GALLBLADDER: The gallbladder is significant for filling defect in the gallbladder fundus. This may represent a noncalcified stone. There is no calcified stone demonstrated on recent CT examination. Alternatively, though less likely, gallbladder neoplasm must be considered. SPLEEN: Unremarkable. PANCREAS: Unremarkable. ADRENALS: Unremarkable. KIDNEYS: Unremarkable. AORTA: No aneurysm. ASCITES: None. OTHER FINDINGS: None. IMPRESSION: No evidence of biliary obstruction. Possible cholelithiasis. 1.2 cm cyst in left lobe of liver adjacent to gallbladder fossa. Mild fatty infiltration of the liver.
--- NOTE | 2018-05-06 15:11 | CP.PCM.PN ---
Subjective - Date & Time of Evaluation Date of Evaluation: 05/06/18 Time of Evaluation: 07:00 - Subjective Subjective: Surgery: Dr. Ceron Pt seen and examined. No acute overnight events. States he had some abdominal pain in the epigastric region after dinner yesterday but feels better this morning. Denies any episodes of nausea/vomiting, fevers/chills. Objective - Vital Signs/Intake and Output Vital Signs (last 24 hours): Temp Pulse Resp BP Pulse Ox 98.0 F 74 20 154/89 H 98 05/06/18 07:20 05/06/18 07:20 05/06/18 07:20 05/06/18 11:15 05/06/18 07:20 Intake and Output: 05/06/18 05/06/18 06:59 18:59 Intake Total 1650 Balance 1650 - Medications Medications: Current Medications Amlodipine Besylate (Norvasc) 5 mg PO DAILY [facility] Last Admin: 05/06/18 11:15 Dose: 5 mg Aspirin (Aspirin Chewable) 81 mg PO DAILY [facility] Last Admin: 05/06/18 11:15 Dose: 81 mg Carvedilol (Coreg) 12.5 mg PO BID [facility] Last Admin: 05/06/18 11:15 Dose: 12.5 mg Dextrose (Dextrose 50% Inj) 0 ml IV STAT PRN; Protocol PRN Reason: Hypoglycemia Protocol Dextrose (Glutose 15) 0 gm PO ONCE PRN; Protocol PRN Reason: Hypoglycemia Protocol Diphenhydramine HCl (Benadryl) 25 mg PO Q6 PRN PRN Reason: Itching / Pruritus Glucagon (Glucagen Diagnostic Kit) 0 mg IM STAT PRN; Protocol PRN Reason: Hypoglycemia Protocol Dextrose (Dextrose 5% In Water 1000 Ml) 1,000 mls @ 0 mls/hr IV .Q0M PRN; Pr otocol PRN Reason: Hypoglycemia Protocol Insulin Human Regular (Novolin R) 0 unit SC [facility]; Protocol Last Admin: 05/06/18 12:15 Dose: Not Given Pantoprazole Sodium (Protonix Ec Tab) 40 mg PO DAILY [facility] Pneumococcal Polyvalent Vaccine (Pneumovax 23 Vaccine) 0.5 ml IM .ONCE ONE Stop: 05/07/18 10:01 Simethicone (Mylicon Chew Tab) 80 mg PO Q6H PRN PRN Reason: GI distress Last Admin: 05/05/18 19:53 Dose: 80 mg - Labs Labs: 05/06/18 06:40 05/06/18 06:40 PT 12.2 SECONDS (9.7-12.2) 05/06/18 11:53 INR 1.1 05/06/18 11:53 APTT 37 SECONDS (21-34) H 05/04/18 12:45 - Constitutional Appears: Well, No Acute Distress - Head Exam Head Exam: ATRAUMATIC, NORMOCEPHALIC - ENT Exam ENT Exam: Mucous Membranes Moist - Respiratory Exam Respiratory Exam: NORMAL BREATHING PATTERN - Cardiovascular Exam Cardiovascular Exam: RRR - GI/Abdominal Exam GI & Abdominal Exam: Soft. absent: Distended, Guarding, Tenderness - Neurological Exam Neurological Exam: Alert, Awake, Oriented x3 - Skin Skin Exam: Dry, Warm Assessment and Plan - Assessment and Plan (Free Text) Assessment: 58M with transaminitis and hyperbilirubinemia Plan: - MRCP negative for biliary obstruction - monitor LFTs & Tbili - GI on board, follow recs - no plan for surgical intervention at this time - d/w Dr. Jie Bustillo
[2018-05-06] MEDS ORDERED: Potassium Chloride 20 mEq ER Tab PO ONE (21:51)
[2018-05-07 00:45] VITALS: RESP 20
[2018-05-07 07:27] LABS: BASO % 0.9 % (0.0-2.0); EOS # 0.3 K/uL (0.0-0.7); EOS % 4.8 % (0.0-4.0); HEMOGLOBIN 13.7 g/dL (12.0-18.0); LYMPH # 0.9 K/uL (1.0-4.3); LYMPH % 15.5 % (20.0-40.0); MEAN CELL VOLUME 88.5 fL (80.0-94.0); MEAN CORPUSCULAR HEMOGLOBIN 30.4 pg (27.0-31.0); MEAN CORPUSCULAR HGB CONC 34.3 g/dL (33.0-37.0); MEAN PLATELET VOLUME 9.3 fL (7.2-11.7); MONO # 0.9 K/uL (0.0-0.8); MONO % 15.2 % (0.0-10.0); NEUT # 3.6 K/uL (1.8-7.0); NEUT % 63.6 % (50.0-75.0); RBC 4.52 Mil/uL (4.40-5.90); RED CELL DISTRIBUTION WIDTH 14.9 % (11.5-14.5); WHITE BLOOD COUNT 5.6 K/uL (4.8-10.8)
[2018-05-07 08:14] VITALS: TEMP 97.8; O2SAT 98
[2018-05-07] MEDS: (Novolin R) Insulin Human Regular 100 units/ml vial SC SCH ×4 (08:32→17:54)
[2018-05-07 08:45] LABS: ALB/GLOB RATIO 1.1 (1.0-2.1); ALBUMIN 3.9 g/dL (3.5-5.0); ALT/SGPT 222 U/L (21-72); AST/SGOT 120 U/L (17-59); BLOOD UREA NITROGEN 10 mg/dL (9-20); CALCIUM 9.1 mg/dl (8.6-10.4); GFR NON-AFRICAN AMERICAN > 60
--- NOTE | 2018-05-07 09:08 | CP.PCM.PN ---
<JeniseraheemrevaJono - Last Filed: 05/07/18 10:31> Subjective - Date & Time of Evaluation Date of Evaluation: 05/07/18 Time of Evaluation: 09:06 - Subjective Subjective: GI Fellow PGY4, progress note. Patient is doing well. He tolerated diet. He still has a itching, but otherwise doing ok. He is having normal BMs. He had a lot of questions this morning and all were answered to his satisfaction. Denies abdominal pain, confusion. 5pt ROS completed and negative except for above. Objective - Vital Signs/Intake and Output Vital Signs (last 24 hours): Temp Pulse Resp BP Pulse Ox 97.8 F 80 20 155/100 H 98 05/07/18 07:00 05/07/18 07:00 05/07/18 07:00 05/07/18 07:00 05/07/18 07:00 Intake and Output: 05/07/18 05/07/18 06:59 18:59 Output Total 250 Balance -250 - Medications Medications: Current Medications Amlodipine Besylate (Norvasc) 5 mg PO DAILY [facility] Last Admin: 05/06/18 11:15 Dose: 5 mg Aspirin (Aspirin Chewable) 81 mg PO DAILY [facility] Last Admin: 05/06/18 11:15 Dose: 81 mg Carvedilol (Coreg) 12.5 mg PO BID [facility] Last Admin: 05/06/18 18:50 Dose: 12.5 mg Dextrose (Dextrose 50% Inj) 0 ml IV STAT PRN; Protocol PRN Reason: Hypoglycemia Protocol Dextrose (Glutose 15) 0 gm PO ONCE PRN; Protocol PRN Reason: Hypoglycemia Protocol Diphenhydramine HCl (Benadryl) 25 mg PO Q6 PRN PRN Reason: Itching / Pruritus Last Admin: 05/07/18 08:58 Dose: 25 mg Glucagon (Glucagen Diagnostic Kit) 0 mg IM STAT PRN; Protocol PRN Reason: Hypoglycemia Protocol Dextrose (Dextrose 5% In Water 1000 Ml) 1,000 mls @ 0 mls/hr IV .Q0M PRN; Protocol PRN Reason: Hypoglycemia Protocol Magnesium Sulfate/Dextrose (Magnesium Sulfate 1 Gm/100 Ml D5w) 1 gm in 100 mls @ 300 mls/hr IVPB Q30M [facility] Stop: 05/07/18 09:49 Potassium Chloride (Potassium Chloride 20 Meq/100 Ml) 20 meq in 100 mls @ 50 mls/hr IVPB Q30M [facility] Stop: 05/07/18 11:29 Insulin Human Regular (Novolin R) 0 unit SC ACHS [facility]; Protocol Last Admin: 05/07/18 08:32 Dose: Not Given Pantoprazole Sodium (Protonix Ec Tab) 40 mg PO DAILY [facility] Pneumococcal Polyvalent Vaccine (Pneumovax 23 Vaccine) 0.5 ml IM .ONCE ONE Stop: 05/07/18 10:01 Simethicone (Mylicon Chew Tab) 80 mg PO Q6H PRN PRN Reason: GI distress Last Admin: 05/05/18 19:53 Dose: 80 mg - Labs Labs: 05/07/18 07:20 05/07/18 07:11 PT 12.2 SECONDS (9.7-12.2) 05/06/18 11:53 INR 1.1 05/06/18 11:53 APTT 37 SECONDS (21-34) H 05/04/18 12:45 - Constitutional Appears: Well, Non-toxic - Head Exam Head Exam: ATRAUMATIC, NORMAL INSPECTION - Eye Exam Eye Exam: EOMI, Scleral icterus - ENT Exam ENT Exam: Mucous Membranes Moist, Normal Exam - Respiratory Exam Respiratory Exam: Clear to Ausculation Bilateral, NORMAL BREATHING PATTERN - Cardiovascular Exam Cardiovascular Exam: REGULAR RHYTHM, +S1, +S2 - GI/Abdominal Exam GI & Abdominal Exam: Soft, Normal Bowel Sounds. absent: Tenderness - Extremities Exam Extremities Exam: Full ROM, Normal Inspection - Neurological Exam Neurological Exam: Alert, Awake, Oriented x3 - Psychiatric Exam Psychiatric exam: Normal Affect, Normal Mood - Skin Skin Exam: Normal Color, Warm Assessment and Plan - Assessment and Plan (Free Text) Assessment: #Elevated liver tests - Concern for DILI due to recent Azithromycin. Please see livertox.nlm.nih.gov and azithromycin, NSAIDs #Abdominal pain #Chronic pain with Chronic NSAID use #JOSE #DM, HTN PLAN: -s/p EGD 05/05/18. No significant abnormalities seen throughout, reached 2nd part of duodenum. No duodenal ulcer. -Bx pathology shows mild chronic gastritis. NO h.pylori. -Elevated liver tests are cholestatic pattern, improved today. -MRCP shows no CBD obstruction. No liver pathology except fatty infiltration. Radiologist concerned with filling defect of gallbladder, ?cholelithiasis. -Recommend follow up u/s of GB in 3-6 months. Monitor for symptoms of GB stones. -Continue to monitor liver tests -Hepatitis panel negative. Auto-immune panel negative. TSH, Iron normal. -CT reviewed and there is evidence for acute inflammation around the duodenum/uncinate. Lipase is normal. -Continue PPI PO daily -Avoid all hepatotoxic medications (Abx, NSAIDs) -diabetic diet, low fat. -Start cholestyramine for pruritus. -Recommend weight loss and better control of diabetes to help with fatty liver, ?NAFLD. -Symptoms of jaundice may last several weeks but should improve with the avoidance of hepatotoxic drugs (Abx, NSAIDS). It is reasonable to restart medications he has been tolerating for more than 6 months (with the exception for Mobic). Mobic can be restarted when jaundice resolves. -Recommend serial liver tests as outpatient until numbers normalize. Case discussed with Dr. Becerril, see attestation <Sean Becerril - Last Filed: 05/07/18 12:18> Objective - Vital Signs/Intake and Output Vital Signs (last 24 hours): Temp Pulse Resp BP Pulse Ox 97.8 F 80 20 142/93 H 98 05/07/18 07:00 05/07/18 07:00 05/07/18 07:00 05/07/18 09:01 05/07/18 07:00 Intake and Output: 05/07/18 05/07/18 06:59 18:59 Output Total 250 Balance -250 - Medications Medications: Current Medications Amlodipine Besylate (Norvasc) 5 mg PO DAILY [facility] Last Admin: 05/07/18 09:01 Dose: 5 mg Aspirin (Aspirin Chewable) 81 mg PO DAILY [facility] Last Admin: 05/07/18 09:01 Dose: 81 mg Carvedilol (Coreg) 12.5 mg PO BID [facility] Last Admin: 05/07/18 09:01 Dose: 12.5 mg Cholestyramine Resin (Questran) 4 gm PO DAILY [facility] Dextrose (Dextrose 50% Inj) 0 ml IV STAT PRN; Protocol PRN Reason: Hypoglycemia Protocol Dextrose (Glutose 15) 0 gm PO ONCE PRN; Protocol PRN Reason: Hypoglycemia Protocol Diphenhydramine HCl (Benadryl) 25 mg PO Q6 PRN PRN Reason: Itching / Pruritus Last Admin: 05/07/18 08:58 Dose: 25 mg Glucagon (Glucagen Diagnostic Kit) 0 mg IM STAT PRN; Protocol PRN Reason: Hypoglycemia Protocol Dextrose (Dextrose 5% In Water 1000 Ml) 1,000 mls @ 0 mls/hr IV .Q0M PRN; Prot ocol PRN Reason: Hypoglycemia Protocol Insulin Human Regular (Novolin R) 0 unit SC ACHS [facility]; Protocol Last Admin: 05/07/18 08:32 Dose: Not Given Pantoprazole Sodium (Protonix Ec Tab) 40 mg PO DAILY [facility] Last Admin: 05/07/18 09:07 Dose: 40 mg Simethicone (Mylicon Chew Tab) 80 mg PO Q6H PRN PRN Reason: GI distress Last Admin: 05/05/18 19:53 Dose: 80 mg - Labs Labs: 05/07/18 07:20 05/07/18 07:11 PT 12.2 SECONDS (9.7-12.2) 05/06/18 11:53 INR 1.1 05/06/18 11:53 APTT 37 SECONDS (21-34) H 05/04/18 12:45 Attending/Attestation - Attestation I have personally seen and examined this patient.: Yes I have fully participated in the care of the patient.: Yes I have reviewed all pertinent clinical information, including history, physical exam and plan: Yes Notes (Text): 05/07/18 12:15 The pt was seen, examined and discussed with Dr. Dunn. Agree with the findings, assessment and recommendations as documented above.
[2018-05-07 09:09] VITALS: BP 142/93
[2018-05-07] MEDS ORDERED: Potassium Chloride 20 mEq ER Tab PO ONE (09:19)
[2018-05-07] MEDS ORDERED: Cholestyramine 4 gm/Pkt UD PO SCH ×2 (10:00→16:00)
[2018-05-07] MEDS ORDERED: Pneumococcal 23-Valent Vaccine IM ONE (10:00)
[2018-05-07] MEDS ORDERED: Pantoprazole 40 mg EC Tab PO SCH (10:00)
[2018-05-07] MEDS: Magnesium Sulfate 1 gm in D5W 1 GM/100 ML BAG IVPB SCH ×2 (10:02→11:21)
--- NOTE | 2018-05-07 15:37 | CP.PCM.DIS ---
<Lizzy Zarco - Last Filed: 05/07/18 16:49> Provider - Provider Date of Admission: 05/04/18 17:58 Attending physician: Tha Mckeon MD Primary care physician: Segundo Wright MD Consults: 05/04/18 17:40 Physician Consult Stat Comment: Consulting Provider: Khurram Yen Consulting Physician: Khurram Yen Reason for Consult: Elevated LFT 05/04/18 17:58 Physician Consult Stat Comment: Consulting Provider: Tyrone Ceron Consulting Physician: Tyrone Ceron Reason for Consult: Obstructive jaundice 05/04/18 18:34 Physician Consult Stat Comment: Consulting Provider: Selwyn [place] Consulting Physician: Selwyn [place] Reason for Consult: Acute renal failure Time Spent in preparation of Discharge (in minutes): 35 Hospital Course - Lab Results Lab Results: Micro Results 05/04/18 20:01 Blood Blood Culture - Preliminary NO GROWTH AFTER 48 HOURS 05/04/18 18:57 Blood Blood Culture - Preliminary NO GROWTH AFTER 48 HOURS 05/04/18 18:57 Urine,Clean Catch Urine Culture - Final Enterobacter Cloacae Ssp Cloac Most Recent Lab Values WBC 5.6 K/uL (4.8-10.8) 05/07/18 07:20 RBC 4.52 Mil/uL (4.40-5.90) 05/07/18 07:20 Hgb 13.7 g/dL (12.0-18.0) 05/07/18 07:20 Hct 40.0 % (35.0-51.0) 05/07/18 07:20 MCV 88.5 fL (80.0-94.0) 05/07/18 07:20 MCH 30.4 pg (27.0-31.0) 05/07/18 07:20 MCHC 34.3 g/dL (33.0-37.0) 05/07/18 07:20 RDW 14.9 % (11.5-14.5) H 05/07/18 07:20 Plt Count 269 K/uL (130-400) 05/07/18 07:20 MPV 9.3 fL (7.2-11.7) 05/07/18 07:20 Neut % (Auto) 63.6 % (50.0-75.0) 05/07/18 07:20 Lymph % (Auto) 15.5 % (20.0-40.0) L 05/07/18 07:20 [place] % (Auto) 15.2 % (0.0-10.0) H 05/07/18 07:20 Eos % (Auto) 4.8 % (0.0-4.0) H 05/07/18 07:20 Baso % (Auto) 0.9 % (0.0-2.0) 05/07/18 07:20 Neut # (Auto) 3.6 K/uL (1.8-7.0) 05/07/18 07:20 Lymph # (Auto) 0.9 K/uL (1.0-4.3) L 05/07/18 07:20 [place] # (Auto) 0.9 K/uL (0.0-0.8) H 05/07/18 07:20 Eos # (Auto) 0.3 K/uL (0.0-0.7) 05/07/18 07:20 Baso # (Auto) 0.0 K/uL (0.0-0.2) 05/07/18 07:20 PT 12.2 SECONDS (9.7-12.2) 05/06/18 11:53 INR 1.1 05/06/18 11:53 APTT 37 SECONDS (21-34) H 05/04/18 12:45 Sodium 135 mmol/L (132-148) 05/07/18 07:11 Potassium 3.3 mmol/L (3.6-5.2) L 05/07/18 07:11 Chloride 97 mmol/L (98-107) L 05/07/18 07:11 Carbon Dioxide 28 mmol/L (22-30) 05/07/18 07:11 Anion Gap 13 (10-20) 05/07/18 07:11 BUN 10 mg/dL (9-20) 05/07/18 07:11 Creatinine 0.9 mg/dL (0.8-1.5) 05/07/18 07:11 Est GFR ( Amer) > 60 05/07/18 07:11 Est GFR (Non-Af Amer) > 60 05/07/18 07:11 POC Glucose (mg/dL) 167 mg/dL (65-110) H 05/07/18 11:22 Random Glucose 131 mg/dL (75-110) H 05/07/18 07:11 Hemoglobin A1c 6.9 % (4.2-6.5) H 05/05/18 06:58 Calcium 9.1 mg/dl (8.6-10.4) 05/07/18 07:11 Phosphorus 3.5 mg/dL (2.5-4.5) 05/07/18 07:11 Magnesium 1.5 mg/dL (1.6-2.3) L 05/07/18 07:11 Iron 75 ug/dL (49-181) 05/05/18 14:08 TIBC 415 ug/dL (250-450) 05/05/18 14:08 % Saturation 18 (20-55) L 05/05/18 14:08 Total Bilirubin 7.2 mg/dL (0.2-1.3) H 05/07/18 07:11 Direct Bilirubin 6.5 mg/dL (0.0-0.4) H 05/04/18 14:53 GGT 1027 U/L (8-78) H 05/04/18 14:53 AST 120 U/L (17-59) H 05/07/18 07:11 ALT 222 U/L (21-72) H 05/07/18 07:11 Alkaline Phosphatase 226 U/L (38-126) H 05/07/18 07:11 Ammonia 30 umol/L (9-33) 05/04/18 14:53 Total Protein 7.5 g/dL (6.3-8.3) 05/07/18 07:11 Albumin 3.9 g/dL (3.5-5.0) 05/07/18 07:11 Globulin 3.6 gm/dL (2.2-3.9) 05/07/18 07:11 Albumin/Globulin Ratio 1.1 (1.0-2.1) 05/07/18 07:11 Amylase 79 U/L (30-110) 05/04/18 12:45 Lipase 266 U/L (23-300) 05/04/18 12:45 TSH 3rd Generation 1.30 mIU/L (0.46-4.68) 05/05/18 06:58 Urine Color Pauly (YELLOW) 05/04/18 18:57 Urine Clarity Hazy (Clear) 05/04/18 18:57 Urine pH 5.0 (5.0-8.0) 05/04/18 18:57 Ur Specific [place] 1.021 (1.003-1.030) 05/04/18 18:57 Urine Protein 2+ mg/dL (NEGATIVE) H 05/04/18 18:57 Urine Glucose (UA) Normal mg/dL (Normal) 05/04/18 18:57 Urine Ketones Negative mg/dL (NEGATIVE) 05/04/18 18:57 Urine Blood 1+ (NEGATIVE) H 05/04/18 18:57 Urine Nitrate Negative (NEGATIVE) 05/04/18 18:57 Urine Bilirubin 2+ (NEGATIVE) H 05/04/18 18:57 Urine Urobilinogen 4.0 mg/dL (0.2-1.0) 05/04/18 18:57 Ur Leukocyte Esterase Neg Jess/uL (Negative) 05/04/18 18:57 Urine WBC (Auto) 29 /hpf (0-5) H 05/04/18 18:57 Urine RBC (Auto) 2 /hpf (0-3) 05/04/18 18:57 Ur Squamous Epith Cells 2 /hpf (0-5) 05/04/18 18:57 Urine Bacteria Rare (<OCC) 05/04/18 18:57 Hyaline Casts 11-20 /lpf (0-2) H 05/04/18 18:57 Ur Random Creatinine 326.3 mg/dL 05/04/18 18:57 Ur Random Sodium 22 mmol/L 05/04/18 18:57 Urine Opiates Screen Positive (NEGATIVE) H 05/04/18 18:57 Urine Methadone Screen Negative (NEGATIVE) 05/04/18 18:57 Acetaminophen < 10.0 ug/mL (10.0-30.0) L 05/04/18 20:01 Ur Barbiturates Screen Negative (NEGATIVE) 05/04/18 18:57 Ur Phencyclidine Scrn Negative (NEGATIVE) 05/04/18 18:57 Ur Amphetamines Screen Negative (NEGATIVE) 05/04/18 18:57 U Benzodiazepines Scrn Negative (NEGATIVE) 05/04/18 18:57 U Oth Cocaine Metabols Negative (NEGATIVE) 05/04/18 18:57 U Cannabinoids Screen Negative (NEGATIVE) 05/04/18 18:57 Anti-Mitochondrial Ab Negative (Negative) 05/05/18 14:08 Anti-Smooth Muscle Ab Negative (Negative) 05/05/18 14:08 Hepatitis A IgM Ab Negative (NEGATIVE) 05/04/18 12:45 Hep Bs Antigen Negative (NEGATIVE) 05/04/18 12:45 Hep B Core IgM Ab Negative (NEGATIVE) 05/04/18 12:45 Hepatitis C Antibody Negative (NEGATIVE) 05/04/18 12:45 - Hospital Course Hospital Course: Patient is a 58 year old obese male with past medical history of HTN, DM, chronic back pain presented to the ED from PMD's office (Dr. Wright) for hypotension, jaundice, epigastric abdominal pain. ON admission patients liver enzymes and Direct bilirubin were elevated. GI and general surgery were consulted on the case. Abdominal US was significant for hepatomegaly and echogenic liver. Relevant studies during this hospital stay are below. Hospital course was complicated by Acute Renal Railure which resolved. Hospital Course was also complicated by Hypokalemia which was replenished as needed and monitored. Patient home meds were resumed for his chronic medical conditions including HTN and DM. Hepatitis pane;, Thyroid Studies, and Autoimmune panel were negative. Patient was diagnosed with a drug induced liver injury (DILI). All hepatotoxic medications were stopped including his home meloxicam. Cholestyramine was started for pruritis. Metformin was DC'd and patient was started on GLipizide 2.5mg AC Breakfast. Patient will continue with his other home medications. Patient was told to follow up with his PCP within 7 days of discharge and get serial liver test. He is to also follow up with GI in 3-6 months for Ultrasound of his GallBladder. Patient is agreeable to plan and medication changes. -Abdominal u/s: CBD 5mm, hepatomegaly. Echogenic liver may be seen in setting of hepatic parenchymal disease or fatty infiltration. Suspected focal fatty sparing. Contracted gallbladder state precludes adequate evaluation CT Abd/Pelvis: Evidence of calcified granulomas at the right lung base as well as noncalcified pulmonary nodules measuring up to 4 mm in the lingula. Suggest follow-up CT at 12 months. Duodenal diverticulum. Marked wall thickening of the duodenum and proximal jejunum; correlate for enteritis. Gastric wall appears mildly thickened and gastritis is not excluded. Sub cm mesenteric lymph nodes and associated mesenteric inflammatory stranding/edema; mesenteric adenitis/panniculitis not excluded. Suspect mild edema involving the pancreatic uncinate/head possibly the result of adjacent inflammatory changes. Pancreatitis cannot be excluded. Recommend correlation with amylase and lipase. EGD 05/05/18. No significan abnormalities seen throughout, reached 2nd part of duodenum MRCP: No evidence of obstruction. Discharge Exam - Head Exam Head Exam: ATRAUMATIC, NORMAL INSPECTION - Additional Findings Additional findings: - Constitutional Appears: Well, Non-toxic - Head Exam Head Exam: ATRAUMATIC, NORMAL INSPECTION - Eye Exam Eye Exam: EOMI, Scleral icterus - ENT Exam ENT Exam: Mucous Membranes Moist, Normal Exam - Respiratory Exam Respiratory Exam: Clear to Ausculation Bilateral, NORMAL BREATHING PATTERN - Cardiovascular Exam Cardiovascular Exam: REGULAR RHYTHM, +S1, +S2 - GI/Abdominal Exam GI & Abdominal Exam: Soft, Normal Bowel Sounds. absent: Tenderness - Extremities Exam Extremities Exam: Full ROM, Normal Inspection - Neurological Exam Neurological Exam: Alert, Awake, Oriented x3 - Psychiatric Exam Psychiatric exam: Normal Affect, Normal Mood - Skin Skin Exam: Normal Color, Warm Discharge Plan - Discharge Medications Prescriptions: amLODIPine [Norvasc] 5 mg PO DAILY #30 tab Cholestyramine [Questran] 4 gm PO DAILY #30 packet Glipizide [Glipizide ER] 2.5 mg PO QAM 30 Days #30 tab.er.24 - Follow Up Plan Condition: FAIR Disposition: HOME/ ROUTINE Instructions: Heart Healthy Diet, High Blood Pressure (DC), Amlodipine, Cholestyramine Resin, Glipizide, Diabetes and Diet Additional Instructions: Please follow up with your primary care physician within 1 week of being discharged from the hospital. Your Metformin has been stopped. Two new medications were added during your visit (Glipizide 2.5mg by mouth before breakfast & Cholestyramine 4grams daily for itching. Please follow up with [facility] for a repeat gall bladder ultrasound in 3-6 month. Please continue to take all other home medications as instructed. If symptoms return please, return to the [facility].R[facility] Referrals: Segundo Wright [Primary Care Provider] - Khurram Yen MD [Staff Provider] - <Tha Mckeon - Last Filed: 05/07/18 20:00> Provider - Provider Date of Admission: 05/04/18 17:58 Attending physician: Tha Mckeon MD Primary care physician: Segundo Wright MD Consults: 05/04/18 17:40 Physician Consult Stat Comment: Consulting Provider: Khurram Yen Consulting Physician: Khurram Yen Reason for Consult: Elevated LFT 05/04/18 17:58 Physician Consult Stat Comment: Consulting Provider: Tyrone Ceron Consulting Physician: Tyrone Ceron Reason for Consult: Obstructive jaundice 05/04/18 18:34 Physician Consult Stat Comment: Consulting Provider: Selwyn [place] Consulting Physician: Selwyn [place] Reason for Consult: Acute renal failure Hospital Course - Lab Results Lab Results: Micro Results 05/04/18 18:57 Blood Blood Culture - Preliminary NO GROWTH AFTER 3 DAYS 05/04/18 20:01 Blood Blood Culture - Preliminary NO GROWTH AFTER 48 HOURS 05/04/18 18:57 Urine,Clean Catch Urine Culture - Final Enterobacter Cloacae Ssp Cloac Most Recent Lab Values WBC 5.6 K/uL (4.8-10.8) 05/07/18 07:20 RBC 4.52 Mil/uL (4.40-5.90) 05/07/18 07:20 Hgb 13.7 g/dL (12.0-18.0) 05/07/18 07:20 Hct 40.0 % (35.0-51.0) 05/07/18 07:20 MCV 88.5 fL (80.0-94.0) 05/07/18 07:20 MCH 30.4 pg (27.0-31.0) 05/07/18 07:20 MCHC 34.3 g/dL (33.0-37.0) 05/07/18 07:20 RDW 14.9 % (11.5-14.5) H 05/07/18 07:20 Plt Count 269 K/uL (130-400) 05/07/18 07:20 MPV 9.3 fL (7.2-11.7) 05/07/18 07:20 Neut % (Auto) 63.6 % (50.0-75.0) 05/07/18 07:20 Lymph % (Auto) 15.5 % (20.0-40.0) L 05/07/18 07:20 [place] % (Auto) 15.2 % (0.0-10.0) H 05/07/18 07:20 Eos % (Auto) 4.8 % (0.0-4.0) H 05/07/18 07:20 Baso % (Auto) 0.9 % (0.0-2.0) 05/07/18 07:20 Neut # (Auto) 3.6 K/uL (1.8-7.0) 05/07/18 07:20 Lymph # (Auto) 0.9 K/uL (1.0-4.3) L 05/07/18 07:20 [place] # (Auto) 0.9 K/uL (0.0-0.8) H 05/07/18 07:20 Eos # (Auto) 0.3 K/uL (0.0-0.7) 05/07/18 07:20 Baso # (Auto) 0.0 K/uL (0.0-0.2) 05/07/18 07:20 PT 12.2 SECONDS (9.7-12.2) 05/06/18 11:53 INR 1.1 05/06/18 11:53 APTT 37 SECONDS (21-34) H 05/04/18 12:45 Sodium 135 mmol/L (132-148) 05/07/18 07:11 Potassium 3.3 mmol/L (3.6-5.2) L 05/07/18 07:11 Chloride 97 mmol/L (98-107) L 05/07/18 07:11 Carbon Dioxide 28 mmol/L (22-30) 05/07/18 07:11 Anion Gap 13 (10-20) 05/07/18 07:11 BUN 10 mg/dL (9-20) 05/07/18 07:11 Creatinine 0.9 mg/dL (0.8-1.5) 05/07/18 07:11 Est GFR ( Amer) > 60 05/07/18 07:11 Est GFR (Non-Af Amer) > 60 05/07/18 07:11 POC Glucose (mg/dL) 167 mg/dL (65-110) H 05/07/18 11:22 Random Glucose 131 mg/dL (75-110) H 05/07/18 07:11 Hemoglobin A1c 6.9 % (4.2-6.5) H 05/05/18 06:58 Calcium 9.1 mg/dl (8.6-10.4) 05/07/18 07:11 Phosphorus 3.5 mg/dL (2.5-4.5) 05/07/18 07:11 Magnesium 1.5 mg/dL (1.6-2.3) L 05/07/18 07:11 Iron 75 ug/dL (49-181) 05/05/18 14:08 TIBC 415 ug/dL (250-450) 05/05/18 14:08 % Saturation 18 (20-55) L 05/05/18 14:08 Total Bilirubin 7.2 mg/dL (0.2-1.3) H 05/07/18 07:11 Direct Bilirubin 6.5 mg/dL (0.0-0.4) H 05/04/18 14:53 GGT 1027 U/L (8-78) H 05/04/18 14:53 AST 120 U/L (17-59) H 05/07/18 07:11 ALT 222 U/L (21-72) H 05/07/18 07:11 Alkaline Phosphatase 226 U/L (38-126) H 05/07/18 07:11 Ammonia 30 umol/L (9-33) 05/04/18 14:53 Total Protein 7.5 g/dL (6.3-8.3) 05/07/18 07:11 Albumin 3.9 g/dL (3.5-5.0) 05/07/18 07:11 Globulin 3.6 gm/dL (2.2-3.9) 05/07/18 07:11 Albumin/Globulin Ratio 1.1 (1.0-2.1) 05/07/18 07:11 Amylase 79 U/L (30-110) 05/04/18 12:45 Lipase 266 U/L (23-300) 05/04/18 12:45 TSH 3rd Generation 1.30 mIU/L (0.46-4.68) 05/05/18 06:58 Urine Color Pauly (YELLOW) 05/04/18 18:57 Urine Clarity Hazy (Clear) 05/04/18 18:57 Urine pH 5.0 (5.0-8.0) 05/04/18 18:57 Ur Specific [place] 1.021 (1.003-1.030) 05/04/18 18:57 Urine Protein 2+ mg/dL (NEGATIVE) H 05/04/18 18:57 Urine Glucose (UA) Normal mg/dL (Normal) 05/04/18 18:57 Urine Ketones Negative mg/dL (NEGATIVE) 05/04/18 18:57 Urine Blood 1+ (NEGATIVE) H 05/04/18 18:57 Urine Nitrate Negative (NEGATIVE) 05/04/18 18:57 Urine Bilirubin 2+ (NEGATIVE) H 05/04/18 18:57 Urine Urobilinogen 4.0 mg/dL (0.2-1.0) 05/04/18 18:57 Ur Leukocyte Esterase Neg Jess/uL (Negative) 05/04/18 18:57 Urine WBC (Auto) 29 /hpf (0-5) H 05/04/18 18:57 Urine RBC (Auto) 2 /hpf (0-3) 05/04/18 18:57 Ur Squamous Epith Cells 2 /hpf (0-5) 05/04/18 18:57 Urine Bacteria Rare (<OCC) 05/04/18 18:57 Hyaline Casts 11-20 /lpf (0-2) H 05/04/18 18:57 Ur Random Creatinine 326.3 mg/dL 05/04/18 18:57 Ur Random Sodium 22 mmol/L 05/04/18 18:57 Urine Opiates Screen Positive (NEGATIVE) H 05/04/18 18:57 Urine Methadone Screen Negative (NEGATIVE) 05/04/18 18:57 Acetaminophen < 10.0 ug/mL (10.0-30.0) L 05/04/18 20:01 Ur Barbiturates Screen Negative (NEGATIVE) 05/04/18 18:57 Ur Phencyclidine Scrn Negative (NEGATIVE) 05/04/18 18:57 Ur Amphetamines Screen Negative (NEGATIVE) 05/04/18 18:57 U Benzodiazepines Scrn Negative (NEGATIVE) 05/04/18 18:57 U Oth Cocaine Metabols Negative (NEGATIVE) 05/04/18 18:57 U Cannabinoids Screen Negative (NEGATIVE) 05/04/18 18:57 Anti-Mitochondrial Ab Negative (Negative) 05/05/18 14:08 Anti-Smooth Muscle Ab Negative (Negative) 05/05/18 14:08 Hepatitis A IgM Ab Negative (NEGATIVE) 05/04/18 12:45 Hep Bs Antigen Negative (NEGATIVE) 05/04/18 12:45 Hep B Core IgM Ab Negative (NEGATIVE) 05/04/18 12:45 Hepatitis C Antibody Negative (NEGATIVE) 05/04/18 12:45 Attending/Attestation - Attestation I have personally seen and examined this patient.: Yes I have fully participated in the care of the patient.: Yes I have reviewed all pertinent clinical information, including history, physical exam and plan: Yes Notes (Text): patient was told to resume his home meds except metformin(Contra indicated with high LFT) prescription given for glipizide and Cholestyramine [Questran follow GI and primary care
[2018-05-07 16:21] VITALS: PULSE 77
== END 2018-05-07 19:30 | disposition home or self-care (01) | DRG 391 ==
LOC: C.ER 11:42 → C.9E 17:58 → C.6T 19:24
PROVIDERS: ADMIT Internal Medicine; ATTEND Internal Medicine
PROC: 0DB68ZX Excision of Stomach, Via Natural or Artificial Opening Endoscopic, Diagnostic (ICD-10-PCS; principal; 2018-05-05 12:30)
DX: K29.70 Gastritis, unspecified, without bleeding (principal); K83.1 Obstruction of bile duct; N17.9 Acute kidney failure, unspecified; G89.29 Other chronic pain; E87.6 Hypokalemia; E11.9 Type 2 diabetes mellitus without complications; I10 Essential (primary) hypertension; K52.9 Noninfective gastroenteritis and colitis, unspecified; K57.10 Diverticulosis of small intestine without perforation or abscess without bleeding; Z79.84 Long term (current) use of oral hypoglycemic drugs; L29.9 Pruritus, unspecified; E66.9 Obesity, unspecified; K71.9 Toxic liver disease, unspecified

== ENCOUNTER 2018-06-29 09:25 | Outpatient (CLI) | payer BC | END 2018-06-29 09:26 | disposition home or self-care (01) | LOC: C.RADIC 09:25 ==